=== PATIENT | female | born 1965 | race African-American/Black ===

== ENCOUNTER 2018-02-04 09:12 | Inpatient (IN) ==
[2018-02-04] MEDS ORDERED: SODIUM CHLORIDE 0.9% 1,000 ML IV STA ×2 (09:42→12:30)
[2018-02-04 09:56] LABS: Basophils # 0.1 10*3/uL (0.0-0.2); Basophils % 0.7 % (0.0-0.8); Eosinophils # 0.1 10*3/uL (0.0-0.87); Eosinophils % 1.3 % (0.00-10.9); Hematocrit 41.3 VOL% (35.7-47.0); Hemoglobin 12.6 GM/DL (12.0-16.0); Immature Granulocytes % 0.2 %; Immature Granulocytes Absolute 0.02 #; Lymphocytes # 1.5 10*3/uL (1.4-4.0); Lymphocytes % 15.9 % (21.3-54.2); Mean Corpuscular HGB Conc 30.5 GM/DL (32-36); Mean Corpuscular Hemoglobin 27 PG (27-34); Mean Corpuscular Volume 88.8 FL (87-102); Mean Platelet Volume 11.4 FL (9.6-12.0); Monocytes # 0.8 10*3/uL (0.11-0.8); Monocytes % 8.5 % (1.7-12.7); Neutrophils # 6.8 10*3/uL (1.4-7.4); Neutrophils % 73.4 % (38.7-73.9); Platelet Count 307 T/CUMM (130-400); Red Blood Count 4.65 MC/CUMM (3.8-5.5); Red Cell Distribution Width 13.8 % (9.3-17.3); White Blood Count 9.2 T/CUMM (4-12)
[2018-02-04 10:15] LABS: Alanine Aminotransferase 14 U/L (13-56); Albumin 3.2 G/DL (3.4-5.0); Alkaline Phosphatase 101 U/L (45-117); Aspartate Amino Transferase 9 U/L (0-37); Bilirubin,Total < 0.39 MG/DL (0.2-1.0); Blood Urea Nitrogen 11 MG/DL (7-18); Calcium 9.6 MG/DL (8.5-10.1); Glucose 81 MG/DL (74-106); Potassium 3.6 MMOL/L (3.5-5.1); Sodium 143 MMOL/L (136-145)
[2018-02-04 10:55] LABS: Apearance,Urine Slightly Hazy (Clear); Bacteria,Urine Moderate /HPF (Few); Bilirubin,Urine Negative (Negative); Blood, Urine Negative (Negative); Glucose,Urine (UA) Negative (Negative); Ketones,Urine Negative (Negative); Mucus,Urine Occasional /LPF (Occasional); Nitrite,Urine Positive (Negative); Protein,Urine Negative; RBC,Urine 2 /HPF (0-4); Squamous Epithelial Cell,Urine Occasional /HPF (0-10); Urine Color Yellow (Yellow); Urine Specific Gravity 1.012 (1.001-1.035); Urine Urobilinogen < 2.0 EU/DL (0.2-1.0); WBC,Urine 6 /HPF (0-6)
[2018-02-04] MEDS ORDERED: PROMETHAZINE 25 MG/1 ML VIAL IM PRN (14:04)
[2018-02-04] MEDS ORDERED: ACETAMINOPHEN 325 MG TABLET PO PRN (14:04)
[2018-02-04] MEDS ORDERED: ONDANSETRON 4 MG/2 ML VIAL IV PRN (14:04)
[2018-02-04 15:05] LABS: Lactic Acid 2.8 MMOL/L (0.4-2.0)
[2018-02-04] MEDS ORDERED: LACTATED RINGERS 1,000 ML IV ONE (15:11)
[2018-02-04] MEDS ORDERED: INFLUENZA VIRUS VACCINE 0.5 ML SYRINGE IM ONE (16:20)
[2018-02-04] MEDS: SODIUM CHLORIDE 0.9% 1,000 ML IV SCH (17:06)
[2018-02-04] MEDS: ENOXAPARIN 40 MG/0.4 ML SYRINGE SUBCUT SCH (17:06)
[2018-02-04] MEDS: LEVOFLOXACIN INJ 500 MG in PREMIX 1 EACH IV SCH (17:06)
[2018-02-04] MEDS: risperiDONE 1 MG TABLET PO SCH (20:26)
[2018-02-04] MEDS: MIRTAZAPINE 15 MG TABLET PO SCH (20:26)
[2018-02-04] MEDS: BENZTROPINE 1 MG TABLET PO SCH (20:26)
[2018-02-05] MEDS: SODIUM CHLORIDE 0.9% 1,000 ML IV SCH ×4 (02:22→18:56)
[2018-02-05 04:30] LABS: Basophils # 0.1 10*3/uL (0.0-0.2); Basophils % 0.8 % (0.0-0.8); Eosinophils # 0.2 10*3/uL (0.0-0.87); Eosinophils % 2.4 % (0.00-10.9); Hematocrit 36.2 VOL% (35.7-47.0); Hemoglobin 10.8 GM/DL (12.0-16.0); Immature Granulocytes % 0.2 %; Immature Granulocytes Absolute 0.02 #; Lymphocytes # 3.3 10*3/uL (1.4-4.0); Lymphocytes % 39.2 % (21.3-54.2); Mean Corpuscular HGB Conc 29.8 GM/DL (32-36); Mean Corpuscular Hemoglobin 26 PG (27-34); Mean Corpuscular Volume 88.3 FL (87-102); Mean Platelet Volume 11.5 FL (9.6-12.0); Monocytes # 0.8 10*3/uL (0.11-0.8); Monocytes % 9.8 % (1.7-12.7); Neutrophils % 47.6 % (38.7-73.9); Platelet Count 304 T/CUMM (130-400); Red Cell Distribution Width 13.9 % (9.3-17.3); White Blood Count 8.4 T/CUMM (4-12)
[2018-02-05 04:50] LABS: Alanine Aminotransferase 14 U/L (13-56); Albumin 2.6 G/DL (3.4-5.0); Alkaline Phosphatase 102 U/L (45-117); Aspartate Amino Transferase 9 U/L (0-37); Bilirubin,Total < 0.39 MG/DL (0.2-1.0); Blood Urea Nitrogen 19 MG/DL (7-18); Calcium 8.2 MG/DL (8.5-10.1); Cholesterol 97 MG/DL (50-200); Glucose 105 MG/DL (74-106); HDL Cholesterol 36 MG/DL (40-60); Osmolality,Calculated 287.8 MOS/KG (273-304); Potassium 3.6 MMOL/L (3.5-5.1); Risk Ratio 2.69; Sodium 144 MMOL/L (136-145); Total Protein 6.2 G/DL (6.4-8.3); Triglycerides 90 MG/DL (2-150)
[2018-02-05] MEDS: risperiDONE 1 MG TABLET PO SCH ×2 (09:35→21:48)
[2018-02-05] MEDS: BENZTROPINE 1 MG TABLET PO SCH ×2 (09:35→21:48)
[2018-02-05] MEDS: DULoxetine 30 MG CAPSULE PO SCH (09:35)
[2018-02-05] MEDS: ENOXAPARIN 40 MG/0.4 ML SYRINGE SUBCUT SCH (15:37)
[2018-02-05] MEDS: LEVOFLOXACIN INJ 500 MG in PREMIX 1 EACH IV SCH (15:38)
[2018-02-05] MEDS: MIRTAZAPINE 15 MG TABLET PO SCH (21:48)
[2018-02-06] MEDS: SODIUM CHLORIDE 0.9% 1,000 ML IV SCH ×2 (03:05→10:08)
[2018-02-06 07:22] VITALS: BP 123/80
[2018-02-06] MEDS: risperiDONE 1 MG TABLET PO SCH (08:22)
[2018-02-06] MEDS: DULoxetine 30 MG CAPSULE PO SCH (08:22)
[2018-02-06] MEDS: BENZTROPINE 1 MG TABLET PO SCH (08:22)
[2018-02-06] MEDS ORDERED: cefTRIAXone 2,000 MG in SYRINGE 1 EACH IV ONE (09:27)
[2018-02-06] MEDS ORDERED: LEVOFLOXACIN 500 MG TABLET PO SCH (10:30)
== END 2018-02-06 11:40 | DRG 690 ==
LOC: EDUNIT# → N.ED 09:12 → N.EDINP 14:04 → N.5E 14:33
PROVIDERS: ADMIT Hospitalist; ATTEND Hospitalist

== ENCOUNTER 2019-09-28 17:50 | Observation (INO) ==
[2019-09-28] MEDS ORDERED: ASPIRIN 325 MG TABLET PO STA (18:39)
[2019-09-28] MEDS ORDERED: ONDANSETRON 4 MG/2 ML VIAL IV STA (18:39)
[2019-09-28] MEDS ORDERED: ALUM/MAG/SIMETH/LIDO VISC 1:1 30 ML BOTTLE PO STA (18:39)
[2019-09-28] MEDS ORDERED: NITROGLYCERIN 2% OINT 1 INCH/GM PACK TOP STA (18:39)
[2019-09-28] MEDS ORDERED: MORPHINE 4 MG/1 ML VIAL IV STA (18:39)
[2019-09-28 18:50] LABS: Basophils # 0.1 10*3/uL (0.0-0.2); Basophils % 1.2 % (0.0-0.8); Eosinophils # 0.2 10*3/uL (0.0-0.87); Eosinophils % 2.6 % (0.00-10.9); Hematocrit 41.3 VOL% (35.7-47.0); Hemoglobin 12.7 GM/DL (12.0-16.0); Immature Granulocytes % 0.4 %; Immature Granulocytes Absolute 0.03 #; Lymphocytes # 2.5 10*3/uL (1.4-4.0); Mean Corpuscular HGB Conc 30.8 GM/DL (32-36); Mean Corpuscular Volume 87.5 FL (87-102); Mean Platelet Volume 11.8 FL (9.6-12.0); Monocytes % 10.1 % (1.7-12.7); Neutrophils % 53.7 % (38.7-73.9); Platelet Count 325 T/CUMM (130-400); Red Blood Count 4.72 MC/CUMM (3.8-5.5); Red Cell Distribution Width 13.8 % (9.3-17.3); White Blood Count 7.8 T/CUMM (4-12)
[2019-09-28 18:57] LABS: PT Patient Result 10.8 SECS (9.8-11.9)
[2019-09-28 19:24] LABS: Alanine Aminotransferase 18 U/L (13-56); Albumin 3.1 G/DL (3.4-5.0); Alkaline Phosphatase 121 U/L (45-117); Aspartate Amino Transferase 18 U/L (0-37); Bilirubin,Total < 0.39 MG/DL (0.2-1.0); Blood Urea Nitrogen 6 MG/DL (7-18); Estimated Glom Filtration Rate 95 ML/MIN; Glucose 82 MG/DL (74-106); Osmolality,Calculated 273.5 MOS/KG (273-304); Total Protein 7.2 G/DL (6.4-8.3)
[2019-09-28 20:37] LABS: Apearance,Urine CLOUDY (Clear); Bacteria,Urine Few /HPF (Few); Bilirubin,Urine Negative (Negative); Blood, Urine Negative (Negative); Glucose,Urine (UA) Negative (Negative); Ketones,Urine Negative (Negative); Mucus,Urine Few /LPF (Occasional); Nitrite,Urine Negative (Negative); Protein,Urine Negative; RBC,Urine 4 /HPF (0-4); Squamous Epithelial Cell,Urine Few /HPF (0-10); Urine Color Yellow (Yellow); Urine Specific Gravity 1.016 (1.001-1.035); Urine Urobilinogen < 2.0 EU/DL (0.2-1.0); WBC,Urine 13 /HPF (0-6)
[2019-09-28] MEDS ORDERED: cefTRIAXone 1,000 MG in SODIUM CHLORIDE 0.9% 100 ML IV STA (20:57)
[2019-09-28] MEDS ORDERED: DEXTROSE 50% 25 GM/50 ML VIAL IV PRN (21:05)
[2019-09-28] MEDS ORDERED: ONDANSETRON 4 MG/2 ML VIAL IV PRN (21:05)
[2019-09-28] MEDS ORDERED: GLUCAGON 1 MG VIAL IM PRN (21:05)
[2019-09-28] MEDS ORDERED: traMADol 50 MG TABLET PO PRN (21:05)
[2019-09-28 21:21] LABS: Barbiturates Screen,Urine Negative (Negative); Benzodiazepines Screen,Urine Negative (Negative); Cannabinoid Screen,Urine Negative (Negative); Opiate Screen,Urine Positive (Negative); Phencyclidine Screen,Urine Negative (Negative)
[2019-09-28 23:07] LABS: Risk Ratio 3.39
[2019-09-28 23:22] LABS: INR 1.1; PT Patient Result 11.6 SECS (9.8-11.9); Partial Thromboplastin Time 24.6 SECS (23.9-33.8)
[2019-09-29] MEDS ORDERED: AZITHROMYCIN INJ 500 MG in SODIUM CHLORIDE 0.9% 250 ML IV SCH (06:30)
[2019-09-29] MEDS ORDERED: MAGNESIUM SULF RIDER 4 GM in PREMIX 1 EACH IV PRN (06:50)
[2019-09-29] MEDS ORDERED: MAGNESIUM SULF RIDER 2 GM in PREMIX 1 EACH IV PRN (06:50)
[2019-09-29] MEDS ORDERED: MAGNESIUM SULF RIDER 1 GM in PREMIX 1 EACH IV ONE (08:00)
[2019-09-29 08:11] LABS: Troponin I < 0.015 NG/ML (0.00-0.045)
[2019-09-29] MEDS ORDERED: ASPIRIN EC 325 MG TABLET PO SCH (09:00)
[2019-09-29] MEDS ORDERED: AZITHROMYCIN 250 MG TABLET PO SCH (09:00)
[2019-09-29] MEDS ORDERED: NITROGLYCERIN SL 0.4 MG TABLET SL ONE (09:54)
[2019-09-29 12:28] VITALS: BP 118/71
[2019-09-29] MEDS ORDERED: cefTRIAXone 1,000 MG in SYRINGE 1 EACH IV SCH (21:30)
[2019-09-30] MEDS ORDERED: PANTOPRAZOLE 40 MG TABLET PO SCH (09:00)
[2019-09-30] MEDS ORDERED: ASPIRIN EC 81 MG TABLET PO SCH (09:00)
== END 2019-09-29 15:47 | disposition home or self-care (01) ==
LOC: EDBD → EDUNIT# → N.EDINP 17:50 → N.ED 17:50 → N.TELEN 22:44
PROVIDERS: ADMIT Internal Medicine; ATTEND Internal Medicine

== ENCOUNTER 2021-03-21 05:54 | Observation (INO) ==
[2021-03-21] MEDS ORDERED: ASPIRIN 325 MG TABLET PO STA (06:14)
[2021-03-21] MEDS: NITROGLYCERIN SL 0.4 MG TABLET SL PRN ×2 (06:29→07:45)
[2021-03-21 06:40] LABS: Basophils # 0.1 10*3/uL (0.0-0.2); Eosinophils # 0.2 10*3/uL (0.0-0.87); Eosinophils % 2.5 % (0.00-10.9); Hematocrit 45.1 VOL% (35.7-47.0); Hemoglobin 13.9 GM/DL (12.0-16.0); Immature Granulocytes % 0.4 %; Immature Granulocytes Absolute 0.03 #; Lymphocytes # 2.6 10*3/uL (1.4-4.0); Lymphocytes % 32.6 % (21.3-54.2); Mean Corpuscular HGB Conc 30.8 GM/DL (32-36); Mean Corpuscular Volume 89.1 FL (87-102); Mean Platelet Volume 12.1 FL (9.6-12.0); Monocytes % 7.3 % (1.7-12.7); Neutrophils % 56.2 % (38.7-73.9); Platelet Count 306 T/CUMM (130-400); Red Blood Count 5.06 MC/CUMM (3.8-5.5); Red Cell Distribution Width 14.9 % (9.3-17.3)
[2021-03-21 07:00] LABS: Calcium 9.1 MG/DL (8.5-10.1); Osmolality,Calculated 285.8 MOS/KG (273-304)
[2021-03-21] MEDS ORDERED: DEXTROSE 50% 25 GM/50 ML SYRINGE IV PRN (08:20)
[2021-03-21] MEDS ORDERED: ALUM/MAG/SIMETH/LIDO VISC 1:1 30 ML BOTTLE PO PRN (08:20)
[2021-03-21] MEDS ORDERED: BISACODYL 5 MG TABLET PO PRN (08:20)
[2021-03-21] MEDS ORDERED: hydrALAZINE 20 MG/1 ML VIAL IV PRN (08:20)
[2021-03-21] MEDS ORDERED: ACETAMINOPHEN 325 MG TABLET PO PRN (08:20)
[2021-03-21] MEDS ORDERED: MAGNESIUM HYDROXIDE SUSP 30 ML UDCUP PO PRN (08:20)
[2021-03-21] MEDS ORDERED: GLUCAGON 1 MG VIAL IM PRN (08:20)
[2021-03-21] MEDS ORDERED: MAGNESIUM SULF RIDER 4 GM/100 ML PREMIX IV PRN (08:35)
[2021-03-21] MEDS ORDERED: MAGNESIUM SULF RIDER 2 GM/50 ML PREMIX IV PRN (08:35)
[2021-03-21] MEDS ORDERED: NICOTINE 14 MG/24 HR PATCH TRANSDERM PRN (08:36)
[2021-03-21] MEDS: PANTOPRAZOLE 40 MG TABLET PO SCH (10:20)
[2021-03-21] MEDS: ENOXAPARIN 40 MG/0.4 ML SYRINGE SUBCUT SCH (10:20)
[2021-03-21] MEDS: INSULIN LISPRO 100 UNIT/ML SUBCUT SCH ×3 (11:50→21:45)
[2021-03-21] MEDS: carvediloL 6.25 MG TABLET PO SCH ×2 (13:18→21:45)
[2021-03-22 07:29] LABS: Basophils # 0.1 10*3/uL (0.0-0.2); Basophils % 0.9 % (0.0-0.8); Eosinophils # 0.2 10*3/uL (0.0-0.87); Eosinophils % 2.4 % (0.00-10.9); Hematocrit 41.7 VOL% (35.7-47.0); Hemoglobin 12.9 GM/DL (12.0-16.0); Immature Granulocytes % 0.4 %; Immature Granulocytes Absolute 0.03 #; Lymphocytes % 38.7 % (21.3-54.2); Mean Corpuscular HGB Conc 30.9 GM/DL (32-36); Mean Corpuscular Volume 88.9 FL (87-102); Mean Platelet Volume 12.5 FL (9.6-12.0); Monocytes % 7.8 % (1.7-12.7); Neutrophils % 49.8 % (38.7-73.9); Platelet Count 284 T/CUMM (130-400); Red Blood Count 4.69 MC/CUMM (3.8-5.5); White Blood Count 7.9 T/CUMM (4-12)
[2021-03-22 08:02] LABS: Albumin 3.1 G/DL (3.4-5.0); Bilirubin,Total 0.4 MG/DL (0.20-1.00); Calcium 8.8 MG/DL (8.5-10.1); Potassium 3.9 MMOL/L (3.5-5.1); Risk Ratio 3.76; Total Protein 6.9 G/DL (6.4-8.2)
[2021-03-22] MEDS: INSULIN LISPRO 100 UNIT/ML SUBCUT SCH ×2 (08:58→12:37)
[2021-03-22] MEDS ORDERED: ASPIRIN CHEW 81 MG TABLET PO SCH (09:00)
[2021-03-22 09:30] LABS: Hypochromasia 1+; Platelet Estimate Adequate
[2021-03-22] MEDS: carvediloL 6.25 MG TABLET PO SCH (09:51)
[2021-03-22] MEDS: ENOXAPARIN 40 MG/0.4 ML SYRINGE SUBCUT SCH (09:51)
[2021-03-22] MEDS: PANTOPRAZOLE 40 MG TABLET PO SCH (09:51)
[2021-03-22 09:52] LABS: Thyroid Stimulating Hormone 0.82 uIU/ml (0.358-3.74)
[2021-03-22 12:42] VITALS: BP 142/90
== END 2021-03-22 12:51 | disposition home or self-care (01) ==
LOC: N.EDINP 05:54 → N.ED 05:54 → N.TELEN 12:56
PROVIDERS: ADMIT Internal Medicine; ATTEND Internal Medicine

== ENCOUNTER 2021-10-28 04:07 | Inpatient (IN) ==
[2021-10-28 04:29] LABS: Basophils # 0.1 10*3/uL (0.0-0.2); Eosinophils # 0.2 10*3/uL (0.0-0.87); Eosinophils % 2.1 % (0.00-10.9); Hematocrit 46.6 VOL% (35.7-47.0); Hemoglobin 14.6 GM/DL (12.0-16.0); Immature Granulocytes % 0.3 %; Immature Granulocytes Absolute 0.03 #; Lymphocytes # 3.5 10*3/uL (1.4-4.0); Lymphocytes % 33.3 % (21.3-54.2); Mean Corpuscular HGB Conc 31.3 GM/DL (32-36); Mean Corpuscular Volume 87.6 FL (87-102); Mean Platelet Volume 12.5 FL (9.6-12.0); Monocytes # 0.7 10*3/uL (0.11-0.8); Monocytes % 6.9 % (1.7-12.7); Neutrophils % 56.4 % (38.7-73.9); Platelet Count 279 T/CUMM (130-400); Red Blood Count 5.32 MC/CUMM (3.8-5.5); Red Cell Distribution Width 15.1 % (9.3-17.3); White Blood Count 10.5 T/CUMM (4-12)
[2021-10-28] MEDS ORDERED: MORPHINE 2 MG/1 ML SYRINGE IV STA (04:35)
[2021-10-28] MEDS ORDERED: hydrALAZINE 20 MG/1 ML VIAL IV STA (04:35)
[2021-10-28] MEDS ORDERED: NITROGLYCERIN 2% OINT 1 INCH/GM PACK TOP ONE (04:35)
[2021-10-28] MEDS ORDERED: ASPIRIN 325 MG TABLET ONE (04:35)
[2021-10-28] MEDS ORDERED: ASPIRIN 325 MG TABLET PO STA (04:35)
[2021-10-28] MEDS ORDERED: NITROGLYCERIN 2% OINT 1 INCH/GM PACK TOP STA (04:35)
[2021-10-28] MEDS ORDERED: ONDANSETRON 4 MG/2 ML VIAL IV STA (04:35)
[2021-10-28] MEDS ORDERED: hydrALAZINE 20 MG/1 ML VIAL ONE (04:35)
[2021-10-28] MEDS ORDERED: ONDANSETRON 4 MG/2 ML VIAL ONE (04:36)
[2021-10-28] MEDS ORDERED: MORPHINE 2 MG/1 ML SYRINGE ONE (04:36)
[2021-10-28 04:38] LABS: PT Patient Result 10.9 SECS (10.5-12.0); Partial Thromboplastin Time 27.1 SECS (23.7-32.9)
[2021-10-28 04:48] LABS: Alanine Aminotransferase 22 U/L (13-56); Albumin 3.6 G/DL (3.4-5.0); Alkaline Phosphatase 127 U/L (45-117); Aspartate Amino Transferase 19 U/L (0-37); Bilirubin,Total < 0.39 MG/DL (0.20-1.00); Blood Urea Nitrogen 7 MG/DL (7-18); Calcium 9.6 MG/DL (8.5-10.1); Carbon Dioxide 26 MMOL/L (21-32); Chloride 110 MMOL/L (98-107); Glucose 105 MG/DL (74-106); Osmolality,Calculated 280.1 MOS/KG (273-304); Potassium 4.1 MMOL/L (3.5-5.1); Sodium 142 MMOL/L (136-145)
[2021-10-28] MEDS ORDERED: ENOXAPARIN 100 MG/ML SYRINGE SUBCUT STA (04:57)
[2021-10-28] MEDS ORDERED: ENOXAPARIN 120 MG/0.8 ML SYRINGE SUBCUT STA (04:59)
[2021-10-28] MEDS ORDERED: GLUCAGON 1 MG VIAL IM PRN (05:45)
[2021-10-28] MEDS ORDERED: ACETAMINOPHEN 325 MG TABLET PO PRN (05:58)
[2021-10-28] MEDS ORDERED: hydrALAZINE 20 MG/1 ML VIAL IV PRN (05:58)
[2021-10-28] MEDS ORDERED: MORPHINE 2 MG/1 ML SYRINGE IV PRN (05:58)
[2021-10-28] MEDS ORDERED: ONDANSETRON 4 MG/2 ML VIAL IV PRN (05:58)
[2021-10-28] MEDS ORDERED: DEXTROSE 10% 250 ML BAG IV PRN (06:07)
[2021-10-28 06:34] LABS: Risk Ratio 3.73; Thyroid Stimulating Hormone 1.67 uIU/ml (0.358-3.74)
[2021-10-28] MEDS: amLODIPine 10 MG TABLET PO SCH ×2 (06:35→08:46)
[2021-10-28] MEDS ORDERED: POTASSIUM CHLORIDE RIDER 10 MEQ/100 ML PREMIX IV PRN (06:46)
[2021-10-28] MEDS ORDERED: MAGNESIUM SULF RIDER 4 GM/100 ML PREMIX IV PRN (06:46)
[2021-10-28] MEDS ORDERED: MAGNESIUM SULF RIDER 2 GM/50 ML PREMIX IV PRN (06:46)
[2021-10-28] MEDS ORDERED: POTASSIUM CHLORIDE 20 MEQ TABLET PO PRN (06:46)
[2021-10-28] MEDS: PANTOPRAZOLE 40 MG TABLET PO SCH (08:45)
[2021-10-28] MEDS: ENOXAPARIN 40 MG/0.4 ML SYRINGE SUBCUT SCH (08:47)
[2021-10-28] MEDS ORDERED: PNEUMOCOCCAL VACCINE (23 VALENT) 0.5 ML VIAL IM ONE (08:57)
[2021-10-28 19:43] LABS: Mucus,Urine Occasional /LPF (Occasional); RBC,Urine 1 /HPF (0-4); Squamous Epithelial Cell,Urine Occasional /HPF (0-10)
[2021-10-28 19:44] LABS: Urine Appearance Clear (Clear); Urine Color Yellow (Yellow); Urine Specific Gravity 1.025 (1.001-1.035); Urine pH 6.5 (4.5-8.0)
[2021-10-28 19:45] LABS: Bilirubin,Urine Negative (Negative); Blood, Urine Negative (Negative); Glucose,Urine (UA) Negative (Negative); Ketones,Urine Negative (Negative); Nitrite,Urine Negative (Negative); Protein,Urine Negative (Negative)
[2021-10-28 20:04] LABS: Barbiturates Screen,Urine Negative (Negative); Benzodiazepines Screen,Urine Negative (Negative); Cannabinoid Screen,Urine Negative (Negative); Opiate Screen,Urine Positive (Negative); Phencyclidine Screen,Urine Negative (Negative)
[2021-10-29 04:20] LABS: Basophils # 0.1 10*3/uL (0.0-0.2); Basophils % 0.8 % (0.0-0.8); Eosinophils # 0.2 10*3/uL (0.0-0.87); Eosinophils % 2.1 % (0.00-10.9); Hematocrit 42.7 VOL% (35.7-47.0); Hemoglobin 13.1 GM/DL (12.0-16.0); Immature Granulocytes % 0.4 %; Immature Granulocytes Absolute 0.04 #; Lymphocytes # 3.2 10*3/uL (1.4-4.0); Lymphocytes % 32.1 % (21.3-54.2); Mean Corpuscular HGB Conc 30.7 GM/DL (32-36); Mean Corpuscular Volume 89.3 FL (87-102); Mean Platelet Volume 13.4 FL (9.6-12.0); Monocytes # 0.8 10*3/uL (0.11-0.8); Monocytes % 7.6 % (1.7-12.7); Platelet Count 242 T/CUMM (130-400); Red Blood Count 4.78 MC/CUMM (3.8-5.5); Red Cell Distribution Width 14.8 % (9.3-17.3); White Blood Count 9.9 T/CUMM (4-12)
[2021-10-29 04:43] LABS: Calcium 8.9 MG/DL (8.5-10.1); Osmolality,Calculated 279.3 MOS/KG (273-304); Potassium 3.7 MMOL/L (3.5-5.1)
[2021-10-29] MEDS: ENOXAPARIN 40 MG/0.4 ML SYRINGE SUBCUT SCH (06:07)
[2021-10-29] MEDS: PANTOPRAZOLE 40 MG TABLET PO SCH (08:02)
[2021-10-29] MEDS: amLODIPine 10 MG TABLET PO SCH (08:02)
[2021-10-29] MEDS ORDERED: ASPIRIN 325 MG TABLET PO SCH (09:00)
[2021-10-29 12:13] VITALS: BP 136/81
[2021-10-29] MEDS ORDERED: PNEUMOCOCCAL VACCINE (23 VALENT) 0.5 ML VIAL IM ONE (13:00)
== END 2021-10-29 13:29 | disposition home or self-care (01) | DRG 305 ==
LOC: N.ED 04:07 → N.EDINP 04:07 → N.TELEN 07:53 → SUATTDRO 08:26
PROVIDERS: ADMIT Internal Medicine; ATTEND Internal Medicine

== ENCOUNTER 2022-06-03 09:40 | Observation (INO) ==
[2022-06-03 10:05] LABS: Basophils # 0.1 10*3/uL (0.0-0.2); Basophils % 0.6 % (0.0-0.8); Eosinophils # 0.3 10*3/uL (0.0-0.87); Hematocrit 44.9 VOL% (35.7-47.0); Hemoglobin 13.7 GM/DL (12.0-16.0); Immature Granulocytes % 0.4 %; Immature Granulocytes Absolute 0.03 #; Lymphocytes # 2.3 10*3/uL (1.4-4.0); Lymphocytes % 26.5 % (21.3-54.2); Mean Corpuscular HGB Conc 30.5 GM/DL (32-36); Mean Corpuscular Volume 89.1 FL (87-102); Mean Platelet Volume 12.1 FL (9.6-12.0); Monocytes # 0.9 10*3/uL (0.11-0.8); Monocytes % 10.2 % (1.7-12.7); Neutrophils % 59.3 % (38.7-73.9); Platelet Count 239 T/CUMM (130-400); Red Blood Count 5.04 MC/CUMM (3.8-5.5); Red Cell Distribution Width 13.8 % (9.3-17.3); White Blood Count 8.57 T/CUMM (4-12)
[2022-06-03 10:25] LABS: Alanine Aminotransferase 137 U/L (13-56); Albumin 3.2 G/DL (3.4-5.0); Alkaline Phosphatase 148 U/L (45-117); Aspartate Amino Transferase 69 U/L (0-37); Bilirubin,Total < 0.39 MG/DL (0.20-1.00); Blood Urea Nitrogen 9 MG/DL (7-18); Calcium 9.4 MG/DL (8.5-10.1); Carbon Dioxide 29 MMOL/L (21-32); Chloride 108 MMOL/L (98-107); Glucose 112 MG/DL (74-106); Osmolality,Calculated 282.1 MOS/KG (273-304); Potassium 3.8 MMOL/L (3.5-5.1); Sodium 142 MMOL/L (136-145); Total Protein 6.7 G/DL (6.4-8.2)
[2022-06-03] MEDS ORDERED: NITROGLYCERIN 2% OINT 1 INCH/GM PACK TOP STA (11:20)
[2022-06-03] MEDS ORDERED: ENOXAPARIN 100 MG/ML SYRINGE SUBCUT STA (11:20)
[2022-06-03] MEDS ORDERED: NITROGLYCERIN SL 0.4 MG TABLET SL PRN (11:20)
[2022-06-03] MEDS ORDERED: ASPIRIN 325 MG TABLET PO STA (11:20)
[2022-06-03] MEDS ORDERED: ASPIRIN 325 MG TABLET ONE (11:21)
[2022-06-03] MEDS ORDERED: ENOXAPARIN 120 MG/0.8 ML SYRINGE SUBCUT ONE (11:22)
[2022-06-03] MEDS ORDERED: MORPHINE 2 MG/1 ML SYRINGE IV PRN (11:53)
[2022-06-03] MEDS ORDERED: traMADol 50 MG TABLET PO PRN (11:53)
[2022-06-03] MEDS ORDERED: ACETAMINOPHEN 325 MG TABLET PO PRN (11:53)
[2022-06-03] MEDS ORDERED: OLANZapine ODT 5 MG TABLET PO PRN (12:01)
[2022-06-03] MEDS ORDERED: PHENAZOPYRIDINE 95 MG TABLET PO PRN (12:14)
[2022-06-03] MEDS ORDERED: METOPROLOL TARTRATE 50 MG TABLET PO SCH (12:30)
[2022-06-03] MEDS ORDERED: LOSARTAN 25 MG TABLET PO SCH (12:30)
[2022-06-03] MEDS: LACTATED RINGERS 1,000 ML IV SCH ×2 (12:51→22:34)
[2022-06-03 13:10] LABS: Hepatitis B Core IgM Quant 0.09 Index; Hepatitis B Surface Ag Quant < 0.10 Index; Hepatitis B Surface Ag Result Non-Reactive (NonReactive); Hepatitis C Virus Ab Quant < 0.02 Index; Hepatitis C Virus Ab Result Non-Reactive (NonReactive)
[2022-06-03] MEDS ORDERED: METOPROLOL SUCCINATE XL 50 MG TABLET PO ONE (13:35)
[2022-06-03] MEDS ORDERED: METOPROLOL TARTRATE 50 MG TABLET PO STA (13:39)
[2022-06-03] MEDS: HALOPERIDOL 5 MG TABLET PO SCH (20:48)
[2022-06-03] MEDS: BENZTROPINE 1 MG TABLET PO SCH (20:49)
[2022-06-03] MEDS: NITROFURANTOIN MACRO/MONO 100 MG CAPSULE PO SCH (20:49)
[2022-06-03] MEDS ORDERED: TEMAZEPAM 15 MG CAPSULE PO SCH (21:00)
[2022-06-03] MEDS ORDERED: DULoxetine 30 MG CAPSULE PO SCH (21:00)
[2022-06-03] MEDS ORDERED: MIRTAZAPINE 15 MG TABLET PO SCH (21:00)
[2022-06-03] MEDS: ENOXAPARIN 120 MG/0.8 ML SYRINGE SUBCUT SCH (23:00)
[2022-06-04 05:22] LABS: Alanine Aminotransferase 113 U/L (13-56); Albumin 2.9 G/DL (3.4-5.0); Alkaline Phosphatase 137 U/L (45-117); Aspartate Amino Transferase 64 U/L (0-37); Bilirubin,Total < 0.39 MG/DL (0.20-1.00); Blood Urea Nitrogen 9 MG/DL (7-18); Calcium 8.7 MG/DL (8.5-10.1); Carbon Dioxide 28 MMOL/L (21-32); Chloride 110 MMOL/L (98-107); Glucose 113 MG/DL (74-106); Osmolality,Calculated 282.1 MOS/KG (273-304); Sodium 142 MMOL/L (136-145); Total Protein 6.4 G/DL (6.4-8.2)
[2022-06-04 07:36] LABS: Basophils # 0.1 10*3/uL (0.0-0.2); Basophils % 0.6 % (0.0-0.8); Eosinophils # 0.3 10*3/uL (0.0-0.87); Eosinophils % 3.1 % (0.00-10.9); Hematocrit 41.3 VOL% (35.7-47.0); Hemoglobin 12.7 GM/DL (12.0-16.0); Immature Granulocytes % 0.3 %; Immature Granulocytes Absolute 0.03 #; Lymphocytes # 2.4 10*3/uL (1.4-4.0); Lymphocytes % 26.1 % (21.3-54.2); Mean Corpuscular HGB Conc 30.8 GM/DL (32-36); Mean Corpuscular Volume 91.2 FL (87-102); Mean Platelet Volume 12.8 FL (9.6-12.0); Monocytes % 10.4 % (1.7-12.7); Neutrophils % 59.5 % (38.7-73.9); Platelet Count 240 T/CUMM (130-400); Red Blood Count 4.53 MC/CUMM (3.8-5.5); Red Cell Distribution Width 13.8 % (9.3-17.3); White Blood Count 9.26 T/CUMM (4-12)
[2022-06-04 07:57] LABS: Risk Ratio 3.43; Thyroid Stimulating Hormone 0.932 uIU/ml (0.358-3.74); VLDL Cholesterol 32.6 MG/DL
[2022-06-04] MEDS ORDERED: amLODIPine 5 MG TABLET PO SCH (08:00)
[2022-06-04] MEDS ORDERED: PANTOPRAZOLE 40 MG TABLET PO SCH (09:00)
[2022-06-04] MEDS ORDERED: METOPROLOL SUCCINATE XL 100 MG TABLET PO SCH (09:00)
[2022-06-04] MEDS ORDERED: METOPROLOL TARTRATE 100 MG TABLET PO SCH (09:00)
[2022-06-04] MEDS: HALOPERIDOL 5 MG TABLET PO SCH (09:39)
[2022-06-04] MEDS: BENZTROPINE 1 MG TABLET PO SCH (09:40)
[2022-06-04] MEDS: NITROFURANTOIN MACRO/MONO 100 MG CAPSULE PO SCH (09:40)
[2022-06-04] MEDS: LACTATED RINGERS 1,000 ML IV SCH (09:41)
[2022-06-04 11:47] VITALS: BP 138/90
[2022-06-04] MEDS: ENOXAPARIN 120 MG/0.8 ML SYRINGE SUBCUT SCH (13:40)
== END 2022-06-04 13:36 ==
LOC: N.TELES 09:40 → N.ED 09:40 → SUATTDRO 12:52 → N.TELES 15:38
PROVIDERS: ADMIT Nurse Practitioner Adult Health; ATTEND Internal Medicine